=== PATIENT | male | born 1945 | race Caucasian/White ===

== ENCOUNTER 2016-06-10 10:57 | Day surgery (SDC) | payer MEDICARE, OTHER ==
[~2016-06-10] VITALS: Ht 188 cm; Wt 65.8 kg
[~2016-06-10 10:57] MED LIST: AMLO5TAB2 PO; ASCO500C6 PO; ASPI-973 PO; GABA600T2 PO; HYDR25TA4 PO; HYDR2TAB27 PO; IBUP200C PO; LATA2.5D5 OP; LISI-567 PO; METO25TA6 PO; MULT-1018 PO; MULT-666 PO; NITR0.3T6 SL; OXYC5TAB72 PO; SIMV40TA5 PO; TIMO1DRO3 OP
== END 2016-06-10 23:59 | disposition home or self-care (01) ==
LOC: END 10:57
PROVIDERS: ATTEND Anesthesiology Pain Medicine
DX: M48.06 Spinal stenosis, lumbar region (principal); Z53.09 Procedure and treatment not carried out because of other contraindication

== ENCOUNTER 2016-07-12 07:16 | Day surgery (SDC) | payer MEDICARE, OTHER ==
[~2016-07-12] VITALS: Ht 190.5 cm; Wt 64.3 kg
[2016-07-12] VITALS (10 sets, daily range): BP systolic 114–155; BP diastolic 49–78; PULSE 61–75; RESP 14–17; O2SAT 95–100
[2016-07-12] MEDS: Lactated Ringer's 1,000 ML IV SCH ×2 (05:29→10:28)
[~2016-07-12 07:16] MED LIST changes: +CeFAZolin 2 Gm/50 mL D5W IV Premix IV SCH
[2016-07-12] MEDS ORDERED: Phenylephrine/NS-PF 100 mCg/mL 5 mL Syringe IVPUSH ONE (07:17)
[2016-07-12] MEDS ORDERED: Propofol 10,000 mCg/mL 20 mL Inj ONE (07:17)
[2016-07-12] MEDS ORDERED: EPHEDrine/NS 5 mg/mL 5 mL Syringe ONE (07:17)
[2016-07-12] MEDS ORDERED: fentaNYL-PF 50 mCg/mL 2 mL Inj ONE (07:17)
[2016-07-12] MEDS ORDERED: Succinylcholine Chloride 20 mg/mL 5 mL Inj ONE (07:17)
[2016-07-12] MEDS ORDERED: CeFAZolin Inj 2 gm / 50mL D5W IV ONE (07:21)
--- NOTE | 2016-07-12 10:57 | PCM.HPANE ---
Patient Data Date of Service: Jul 12, 2016 Surgeon Admitting Provider: Attending Provider:Trever Stuart MD Primary Care Physician:Chucky Brice MD Other Provider:Sheila George Anesthesia Reason for Visit Malignant Abdominal Wall Mass MALIGNANT ABDOMINAL WALL MASS Ht/WT & BMI Height (Feet): 6 Height (Inches): 3.00 Weight (Kilograms): 64.3 Body Mass Index 17.00 Allergies Coded Allergies: morphine (Verified Adverse Reaction, Severe, N/V, burning sensation from bottom of feet to top of head., 06/26/15) Past Anesthesia History Anesthesia History: Denies:: Abnormal Airway, Anesthesia Reactions, Difficult Intubation, Fam Anesthesia Reaction, Fam Malignant Hypertherm, Malignant Hyperthermia Diabetes History Hx Diabetes?: No MRSA MRSA: No Medications Blood Thinner: Aspirin Hypertension Medication: Yes Home Meds Incl Beta Georgiana: Yes Date Beta Georgiana Taken: Jul 12, 2016 Time Beta Georgiana Taken: 06:30 Reported Medications Nitroglycerin 0.3 Mg Tab.subl0.3 Mg SL DIRECTED PRN For Chest Pain 06/09/16 Metoprolol Tartrate 25 Mg Gyxsqq81 Mg PO BID 30 Days Ref 0 06/09/16 Hydromorphone (Dilaudid)2 Mg Tablet2 Mg PO Q4H PRN Pain 06/09/16 Aspirin 81 Mg Gplslh95 Mg PO DAILY Ref 0 06/09/16 Ascorbic Acid (Vitamin C)500 Mg Capsule.er500 Mg PO TID 06/09/16 Multivitamin (Once Daily)1 Each Tablet1 Each PO DAILY 06/09/16 Ibuprofen 200 Mg Xrcyhre224 Mg PO DIRECTED PRN For Pain Ref 0 06/09/16 Hydrochlorothiazide 25 Mg Ffwgqa04 Mg PO DAILY Ref 0 09/02/15 oxyCODONE 5 Mg Tablet5-10 Mg PO q6hrs PRN For Pain Ref 0 07/31/15 Lisinopril 20 Mg Ssnynv93 Mg PO DAILY Ref 0 03/25/15 Amlodipine 5 Mg Tablet5 Mg PO DAILY Ref 0 02/18/15 Multivitamin (Multi Vitamin Daily)1 Each Tablet1 Each PO DAILY 30 Days Ref 0 11/20/14 Latanoprost (Xalatan)2.5 Ml Drops2.5 Ml OP 11/19/14 Timolol Maleate/Pf (Timoptic 0.25% Ocudose Drop)1 Each Droperette1 Each OP 11/19/14 Simvastatin 40 Mg Ieszne93 Mg PO HS 30 Days Ref 0 11/19/14 Gabapentin 600 Mg Hitsyo933 Mg PO BID Ref 0 11/19/14 History History of ENT Problems?: Yes HEENT History: Positive for:: Glaucoma Hearing Problem Denies:: Abnormal Airway Difficult Intubation Dysphagia Denture Type: Full- Upper Hx of Heart Problems?: Yes Cardiovascular History: Positive for:: Cardiac Surgery (cabg 2006 2 vessel, melvin carotids) Heart Murmur Hypertension Valvular Heart Disease (echo 2011, mild) Denies:: AICD Atrial Fibrillation Chest Pain Congestive Heart Failure Pacemaker Other Cardiac History: Power port current in place Hx of Respiratory Problem?: Yes Respiratory History: Positive for:: Dyspnea (sob exertion) Denies:: Asthma COPD Cough Hemoptysis Oxygen Administration Pneumonia Tuberculosis Use of C-PAP Machine Hx Neurologic Problems?: No Neurological History: Denies:: CVA Dementia Multiple Sclerosis Parkinson's Disease Seizures Hx of GI Problems?: Yes Gastrointestinal History: Positive for:: Gastroesphageal Reflux Rectal Bleeding Denies:: Cirrhosis Diverticulitis Hiatal Hernia Other GI Pertinent History: colon ca with recurrences- abdominal wall resections, partial gastrectomy, lorin en y , partial hepatectomy, costal margins- diaphragmatic resections. Current local cutaneous recurrence Hx of Problems?: No Male Hx: Denies:: Prostate Problems Scrotal Mass Testicular Surgery Skin History: Denies:: History Skin Disorders? Pressure Ulcers Hx Musculoskeletal Problems?: Yes Musculoskeletal History: Positive for:: Back Injury (lumbar spinal stenosis, JESUS injections) Osteoarthritis Denies:: Joint Replacement Musculoskeletal Trauma Myasthenia Gravis Hx of Psycho/Social Problems?: No Psycho Social History: Denies:: Anxiety Hx Depression Hx Surgeries?: Yes (COLON RESECTION X2, ABD WALL RESECTION, CABG, APPY, PORT-A- CATH ) Hx Any Other Health Problems?: Yes Other History: Positive for:: Cancer (colon cancer- mult recurrences) Denies:: Endocrine Disease Hospitalization Thyroid Disease History Blood Transfusions: Denies:: Blood Transfuse Reaction Blood Transfusions Hx Diabetes: No Hx Alcohol Use: YesHx Substance Use: No Smoking Status: Current Every Day Smoker Have You Smoked inLast 12 mo: Yes (pipe) Stop/Bang P-Blood Pressure: treated: Yes B- Body Mass Index > 35 kg/m2: No A- Age over 50: Yes N- Neck Large Circumference: No G- Gender Male: Yes JULIET Risk Assessment: High Risk, =/>3 Yes JULIET Category 4 OutPt Procedure: Yes Risk Assessment Category Category 1A: Patient has history of documented sleep apnea, and HAS NOT received any narcotic, sedative or anesthesia administration during this stay. Category 1B: Patient has history of documented sleep apnea, and HAS received any narcotic , sedative or anesthesia administration during this stay Category 2: Patient has SUSPECTED Obstructive Sleep Apnea, and HAS received any narcotic , sedative or anesthesia administration during this stay. Category 3: Patient has SUSPECTED Obstructive Sleep Apnea and HAS NOT received narcotic, sedative or anesthesia administration during this stay. Category 4: Outpatient in Procedural Areas with known sleep apnea or who screen positive for High Risk via the STOP/BANG questionnaire. Exam Exam Vital Signs Vital Signs Date Time Temp Pulse Resp B/P Pulse Ox O2 Delivery O2 Flow Rate FiO2 07/12/16 07:51 35.8 72 16 131/57 100 Room Air General Appearance: Alert, Oriented X3, Cooperative HEENT/AIRWAY: MP 2, Neck Movement (OK), Mouth Opening (Wide, full upper dentures) Lungs: Clear to Auscultation Heart: Regular Rate/Rhythm, Normal S1, Normal S2, Murmur Meds/Labs/Diagnostics Admission Meds Current Medications Lactated Ringer's (Lr) 1,000 ml @ 120 mls/hr Q8H20M IV Last administered on t 05:29; Start 07/12/16 at 05:00; Stop 07/12/16 at 13:19 Plan Impression Patient chart reviewed, patient interviewed and anesthestic plan with risks, benefits, and alternatives discussed, and informed consent obtained. NPO Status: 07/11 at 2100 ASA Physical Status: ASA3 Severe Disease Anesthetic Plan: GA Bene/Risks/Altern/Consents: Yes HP Complete Prior to Induction: Yes Luis Fernando Mota MD Jul 12, 2016 09:54
[2016-07-12] MEDS ORDERED: Lactated Ringer's 500 ML IV PRN (11:23)
[2016-07-12] MEDS ORDERED: Lactated Ringer's 1,000 ML IV SCH (11:23)
[2016-07-12] MEDS ORDERED: EPHEDrine Sulfate 50 mg/mL Inj IVPUSH PRN (11:25)
[2016-07-12] MEDS ORDERED: hydrALAZINE 20 mg/mL Inj IVPUSH PRN (11:25)
[2016-07-12] MEDS ORDERED: Atropine 0.4 mg/mL Inj IVPUSH PRN (11:25)
[2016-07-12] MEDS ORDERED: MetoCLOpramide 5 mg/mL 2 mL Inj IVPUSH PRN (11:25)
[2016-07-12] MEDS ORDERED: HYDROmorphone 1 mg/mL Inj IVPUSH PRN (11:25)
[2016-07-12] MEDS ORDERED: Ondansetron 2 mg/mL 2 mL Inj IVPUSH PRN (11:25)
[2016-07-12] MEDS ORDERED: Phenylephrine 10,000 mCg/mL Inj IVPUSH PRN (11:25)
[2016-07-12] MEDS ORDERED: Labetalol 5 mg/mL 4 mL Inj IV PRN (11:25)
[2016-07-12] MEDS ORDERED: Dexamethasone 4 mg/mL Inj IVPUSH PRN (11:25)
--- NOTE | 2016-07-12 12:08 | PCM.ANEP1 ---
Post Anesthesia Phase 1 PACU Phase 1 Assessment Date of Service: Jul 12, 2016 Vital Signs Vital Signs Date Time Temp Pulse Resp B/P Pulse Ox O2 Delivery O2 Flow Rate FiO2 07/12/16 07:51 35.8 72 16 131/57 100 Room Air Anesthetic Administered: GA Level of Alertness: Sleeping, hard to arouse RAMOS's with Equal Strength: Yes Pain: No Nausea or Vomiting: No Oxygen Delivery: Simple Mask Lungs: Normal Air Movement Luis Fernando Mota MD Jul 12, 2016 12:08
[2016-07-12] MEDS: fentaNYL-PF 50 mCg/mL 2 mL Inj IVPUSH PRN ×2 (12:20→12:30)
--- NOTE | 2016-07-12 12:22 | PCM.ANEP2 ---
Post Anesthesia Evaluation ASA/CMS Post Anesthesia Date of Service: Jul 12, 2016 VS in Patient's Normal Range?: Yes Resp Stable; Airway Patent?: Yes CV Function & Hydration Stable: Yes Mental Status Recovered?: Yes Pain control Satisfactory?: Yes N/V Control Satisfactory?: Yes Luis Fernando Mota MD Jul 12, 2016 12:21
[2016-07-12] MEDS ORDERED: Lactated Ringer's 1,000 ML IV ONE (14:30)
--- NOTE | 2016-07-12 16:04 | OP ---
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 PROCEDURE: A 4 cm excision of recurrent abdominal wall mucinous adenocarcinoma of the colon. SURGEON: Trever Stuart MD. DIRECTOR SOFTWARE: Andie Oseguera PA-C. INDICATIONS: A 70-year-old man who has had multiple recurrences of his original tumor, which was mucinous adenocarcinoma of the colon. A year ago at [facility], he had an R1 resection of an upper abdominal mass that included a subtotal gastrectomy, left lateral hepatic segmentectomy, abdominal wall portion of the diaphragm and portion of the costal margin. He has developed an abdominal wall recurrence with a 4 cm mass eroding through the skin. A PET scan shows upper abdominal recurrence. Again, he was known a year ago to have residual disease at the duodenal margin and it was elected at [facility] not to excise it, as it would require a Whipple resection and they did not think he could tolerate that operation. On his most current scan, it is not clear the depth of this abdominal mass but after discussing options with the patient, and having him seen preoperatively by Dr. Blake Heaton, it was elected to proceed with an excision but the patient and his were well aware that I may not be able to do a complete resection. FINDINGS: I was only able to do an R2 resection. There was deep gross tumor in what appeared to me the anterior gastric wall, which I definitely did not want to get into. Dr. Heaton then performed a flap mobilization closure. DESCRIPTION OF PROCEDURE: At the beginning and end of my portion of the operation, the SCOAP checklist was completed. A general endotracheal anesthetic was induced by Dr. Iker Mota from anesthesia. Using Betadine, his anterior chest and abdomen were prepped and draped in usual fashion. The cutaneous incision was designed giving grossly clear margins. The tumor was then excised and giving clear gross margins but in the central portion of the deep margin it did appear that I was approaching the gastric or small intestinal wall and, as I had discussed preoperatively with the patient, I was not going to do a gastrointestinal resection. Therefore, I came across the tumor. I placed sutures for margin orientation and then, Dr. Heaton took over to close the wound. The estimated blood loss of my portion of the operation was less than 10 cc, and there were no apparent complications. For my part of the operation, the final sponge, needle and instrument counts were announced as correct. Critical assistance was provided by Andie Oseguera PA-C.
--- NOTE | 2016-07-13 14:59 | OP ---
[address] [address] OPERATIVE REPORT PATIENT: LEONARDO IQBAL : 1945 MR#: [id number] ADMIT: 07/12/2016 JOB ID: [id number] DATE OF SURGERY: 07/12/2016 PREOPERATIVE DIAGNOSIS(ES): 1. Abdominal wall malignant tumor. 2. Abdominal wall defect. POSTOPERATIVE DIAGNOSIS(ES): 1. Abdominal wall malignant tumor. 2. Abdominal wall defect, defect measuring 4 cm in diameter. PROCEDURES: 1. Layered closure of abdominal defect. 2. Layered closure 20 cm. SURGEON: Hima Heaton MD PUBLIC HEALTH SANITARIAN TECHNICIAN: Andie Oseguera PA-C SPECIMEN: None for the plastic surgery portion of the procedure. DRAINS: A #15 round Burke drain, 1 x1. COMPLICATIONS: None apparent. 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 The patient has had several abdominal surgeries for this. The patient most recently had a procedure in January. Patient developed a cutaneous recurrence or extension after the last procedure. At this point, excision of this lesion by Dr. Stuart and closure are indicated for symptom relief. PROCEDURES AND FINDINGS: The patient was identified in the preoperative area and the surgical site was marked. The patient was then taken back to the operating room and placed supine on the operating table. Appropriate time-outs were taken. Dr. Stuart then presented and proceeded with his portion of the procedure. I returned to the operating room after he was done. When I return to the operating room, it was noted that the patient has the midline 4 cm defect. The defect extended all the way down to the abdominal wall. There is a slight possibility according to Dr. Stuart that there is scar tissue and scarred stomach wall at the base of this wound. I started out by incising his midline abdominal incision from just below the level of the nipple all the way to just above the umbilicus. Incision was deepened down to the abdominal wall. I then elevated the subcutaneous tissue off of the abdominal wall medially and laterally. This was also done at the chest wall. I then proceeded to dissect toward the wound edge. This was done from the abdominal wall fascia toward the wound edges to prevent getting into the abdominal cavity. This was done circumferentially. Once this had been done, I continued to elevate the skin flap outward for approximately 10 cm in each direction. This allowed for adequate mobilization. I then temporarily stapled the skin edge at the defect together. Once this had been done, excess skin superiorly and inferiorly were marked. The central jennifer were then removed. Incision was then made along the excess skin with a #10 blade. The incisions were then deepened down to the underlying subcutaneous tissue. Skin was then removed with electrocautery. This was done superiorly and inferiorly. Once this had been done, a layer of 3-0 Vicryl simple interrupted sutures were then placed to reapproximate the Megan fascia where available, and just before complete closure, a #15 drain was placed into the surgical site exiting at a separate inferior lateral stab incision. The drain was secured with a 3-0 nylon drain stitch. I then continued to reapproximate the underlying subcutaneous tissue with 3-0 Vicryl sutures. Once that has been done, a layer of 3-0 Monocryl deep dermal sutures were then placed, followed by 4-0 Monocryl running subcuticular suture. Skin glue was then applied. The patient tolerated the procedure well. Needle count, sponge count, instrument counts were correct at the end of the procedure. The patient's total length of intermediate closure was 20 cm.
--- NOTE | 2016-07-15 15:22 | PATH ---
SURGICAL PATHOLOGY Attending Physician:Sarita Maloney CASE STATUS: Signed Out PATIENT NAME: LEONARDO IQBAL PID: [id number] : 1945 DATE COLLECTED:07/12/2016 20:25 SPECIMEN: Mass, NOS CLINICAL HISTORY: MALIGNANT ABDOMINAL WALL MASS DEEP MARGIN GROSSLY POSITION 1). RECURRENT MUCINOUS ADENOCARCINOMA COLON ABDOMINAL WALL MASS LONG STITCH-LATERAL, SHORT STITCH-SUPERIOR. FINAL DIAGNOSIS: 1.ABDOMINAL MASS EXCISION: ADENOCARCINOMA, CONSISTENT WITH RECURRENT METASTATIC ADENOCARCINOMA, SEE COMMENT. THE DEEP MARGIN IS FOCALLY POSITIVE FOR TUMOR. ICD10 code C79.2 NOTE: The histology of the tumor in this specimen is similar to that in the previous abdominal wall lesion biopsy ([id number], 11/12/2014) and the stomach mass biopsy ([id number], 11/20/2014). GROSS DESCRIPTION: The specimen is received in formalin, labeled with the patient's name, sublabeled as recurrent mucinous adenocarcinoma abdominal wall mass, long-right lateral, short-superior and consists of an oriented ellipse of skin (1.3 cm AP, 3.5 cm SI, 4.0 cm ML) oriented with 2 black sutures (long-right lateral, short-superior). The skin is munoz-white with a focally pale smooth shiny bosselated ulcerated area (3.5 x 2.7 x 0.8 cm) located 0.2 cm from the posterior, 0.5 cm from the superior, circular 4 cm from the inferior, 0.3 cm from the medial, and 0.5 cm from the lateral resection margins. Ink code: yellow-posterior; black-superior; orange-inferior; green-medial; blue-lateral. Section code: (A) medial resection margin, perpendicularly sectioned, entirely submitted; (B- H) ellipse of skin, serially sectioned and submitted ML, every other slice submitted; (I) lateral resection margin, perpendicularly sectioned, entirely submitted. 07/13/16 JM MICRO DESCRIPTION: Sections are of skin with a malignant neoplasm in the dermis, composed of large angulated glands and glands with irregular contours and central necrosis. The tumor occupies much of the specimen and is present at the deep inked surgical margin. ICD-9 CODES: CPT CODES: 1: 88318 Electronically Signed Out Kathleen Parks MD [facility] [address], [place] [address] Technical component performed at [facility], [address], [place], [address]
== END 2016-07-12 23:59 | disposition home or self-care (01) ==
LOC: SAS 07:16
PROVIDERS: ATTEND Surgery
DX: C79.2 Secondary malignant neoplasm of skin (principal); C18.9 Malignant neoplasm of colon, unspecified; R06.09 Other forms of dyspnea; F17.210 Nicotine dependence, cigarettes, uncomplicated; I10 Essential (primary) hypertension; K21.9 Gastro-esophageal reflux disease without esophagitis; Z79.82 Long term (current) use of aspirin; Z79.899 Other long term (current) drug therapy
CPT/HCPCS: 13101; 13102; 22900; J0330; J0690; J2370; J2405; J3010; J7120

== ENCOUNTER 2016-10-31 10:45 | Day surgery (SDC) | payer MEDICARE, OTHER ==
[~2016-10-31] VITALS: Ht 190.5 cm; Wt 67.1 kg
[~2016-10-31 10:45] MED LIST changes: -CeFAZolin 2 Gm/50 mL D5W IV Premix IV SCH; -HYDR2TAB27 PO; +LATA2.5D5 BOTH_EYES; -LATA2.5D5 OP; -MULT-666 PO; +TIMO1DRO3 BOTH_EYES; -TIMO1DRO3 OP
[2016-10-31] MEDS ORDERED: 0.9% Sodium Chloride 1,000 ML IV SCH (11:25)
[2016-10-31 16:56] VITALS: BP 149/72; PULSE 57; RESP 18; O2SAT 98
[2016-10-31] MEDS ORDERED: LISI10TA PO (17:26)
[2016-10-31] MEDS ORDERED: HepLOK Flush 100 unit/mL 5 mL Inj ONE (18:10)
--- NOTE | 2016-10-31 18:29 | NUR ---
IV Hydration: Tolerated ordered IV fluid without incident. Portacath flushed with 20 mLs of NS and 5 mLs of Heparin, and de accessed. Discharged home ambulatory in stable condition.
== END 2016-10-31 23:59 | disposition home or self-care (01) ==
LOC: MOCO 10:45
PROVIDERS: ATTEND Internal Medicine Hematology & Oncology
DX: E86.0 Dehydration (principal); C79.89 Secondary malignant neoplasm of other specified sites; C79.2 Secondary malignant neoplasm of skin; I12.9 Hypertensive chronic kidney disease with stage 1 through stage 4 chronic kidney disease, or unspecified chronic kidney disease; N18.9 Chronic kidney disease, unspecified; D64.9 Anemia, unspecified
CPT/HCPCS: 96360; J1642; J7030

== ENCOUNTER 2016-12-22 12:20 | Emergency (ER) | payer MEDICARE, OTHER ==
[~2016-12-22] VITALS: Ht 190.5 cm; Wt 65.7 kg
[~2016-12-22 12:20] MED LIST changes: -AMLO5TAB2 PO; -ASCO500C6 PO; +CAPE500T PO; -IBUP200C PO; -LISI-567 PO; +LISI10TA PO; -METO25TA6 PO; -NITR0.3T6 SL; -OXYC5TAB72 PO
[2016-12-22 12:26] VITALS: BP 103/57; PULSE 76; RESP 16; O2SAT 100
[2016-12-22] MEDS ORDERED: 0.9% Sodium Chloride 1,000 ML IV ONE (13:32)
[2016-12-22] MEDS ORDERED: Ondansetron 2 mg/mL 2 mL Inj IVPUSH PRN (13:35)
[2016-12-22] MEDS ORDERED: HYDROmorphone 0.5 mg/0.5 mL iSecure Syringe IVPUSH PRN (13:35)
[2016-12-22] MEDS ORDERED: Ketorolac 15 mg/mL Inj IVPUSH ONE (13:35)
[2016-12-22 13:47] VITALS: BP 115/38; PULSE 65; RESP 15; O2SAT 97
[2016-12-22 14:00] LABS: BASOPHILS % (AUTO) 0.3 % (0-3); EOSINOPHILS % (AUTO) 4.6 % (0-5); MONOCYTES % (AUTO) 5.8 % (4-12); Mean Corpuscular Volume 95.6 fL (81-100); NEUTROPHILS % (AUTO) 78.3 % (40-74); Platelet Count 227 bil/L (150-400)
[2016-12-22 14:04] LABS: COLOR,URINE YELLOW (YELLOW)
[2016-12-22 14:05] LABS: APPEARANCE,URINE CLOUDY (CLEAR,HAZY); OCCULT BLOOD,URINE LARGE (NEGATIVE); PH,URINE 5.5 (5.0-8.0)
--- NOTE | 2016-12-22 14:05 | ED.REPORT ---
HPI-Abd Pain M 40 and Over Date of Service Dec 22, 2016 ED Provider: Doc,Ed MD The pt is a 71 y/o male w/ a hx of metastastic colon cancer, gastric cancer, HTN , chronic anemia, chronic renal insufficiency hyperlipidemia, GERD, an appendectomy, an gastrectomy, and 2 bowel resections presenting to the ED from urgent care complaining of dysuria onset 4 days ago. He is also experiencing polyuria and diarrhea. Denies a fever. The pt has colon cancer, is on palliative chemotherapy, and goes through cycles of 2 weeks on and 2 weeks off. Nursing Notes Stated Complaint: DIARRHEA Chief Complaint: Dysuria Nursing Notes Reviewed: Yes Allergies: Coded Allergies: morphine (Verified Adverse Reaction, Severe, N/V, burning sensation from bottom of feet to top of head., 10/31/16) Scheduled Aspirin (Aspirin) 81 Mg Tablet 81 MG PO DAILY Capecitabine (Xeloda) 500 Mg Tablet 1,500 MG PO bid dys1-14 q21dys STARTED 12/06 Gabapentin (Gabapentin) 600 Mg Tablet 600 MG PO TID Hydrochlorothiazide (Hydrochlorothiazide) 25 Mg Tablet 25 MG PO DAILY Latanoprost (Xalatan) 2.5 Ml Drops 1 DROP BOTH_EYES DAILY Lisinopril (Lisinopril) 10 Mg Tablet 10 MG PO DAILY Multivitamin (Multi Vitamin Daily) 1 Each Tablet 1 TABLET PO DAILY Simvastatin (Simvastatin) 40 Mg Tablet 40 MG PO HS Timolol Maleate/Pf (Timoptic 0.25% Ocudose Drop) 1 Each Droperette 1 DROP BOTH_ EYES QAM General Time Seen by MD: 14:05 Chief Complaint Dysuria Hx Obtained From: Patient Arrived By: Walk-in Sudden in Onset?: Yes Symptom Duration: Since onset Recent Healthcare: No recent hospitalization, Recent doctor visit Similar Sx Previous: Yes Past Medical History Past Medical History Widely metastatic colon cancer gastric cancer Neuralgia Hearing loss Pt is on oral chemo and goes through cycles of 2 weeks on and 2 weeks off for his colon cancer Palliative chemotherapy Chronic renal insufficiency Chronic anemia Reports: GERD, Hyperlipidemia, Hypertension Reports: Diverticulitis Past Surgical History Gastrectomy Cardiac cath Bowel resection x2 Reports: Appendectomy, CABG Reports: Portocath Smoking History Current Every Day Smoker Social History Alcohol Use: "Social" Drug Use: Denies drug use Ambulatory Status Independent Review of Systems Polyuria; Constitutional: Denies: Fever GI: Reports: Diarrhea Male: Reports Dysuria Complete sys rev & neg: except as marked. Physical Exam No post-void residue Initial Vital Signs Vital Signs (First) Date Time Temp Pulse Resp B/P Pulse Ox O2 Delivery O2 Flow Rate FiO2 12/22/16 12:26 36.5 76 16 103/57 100 12/22/16 13:47 Room Air Initial VS: Reviewed Head / Eyes: Atraumatic, Normocephalic, PERRL ENT: Mucous membranes moist, Conjunctiva normal, No scleral icterus Neck: Supple, Non-tender, Full range of motion Skin: Warm, Dry, No cyanosis Neurologic: Alert, Oriented, Nonfocal Psychiatric: Mood/affect normal, Behavior normal, Normal thought content General/Constitutional: Awake, Alert Respiratory / Chest: Atraumatic, Breath sounds NL, Breath sounds = bilat Cardiovascular: Heart rate NL, Regular rhythm, Heart sounds NL Abdomen: Atraumatic, Soft Tenderness/Guarding/Rebound: Positive: Tender suprapubic (mild ) Back: Atraumatic, Full range of motion Interpretation & Diagnostics Lab Results Interpretation Result Diagram: 12/22/16 1353 12/22/16 1353 Test 12/22/16 13:08 12/22/16 13:53 Urine Color Yellow (YELLOW) Urine Appearance Cloudy (CLEAR,HAZY) Urine pH 5.5 (5.0-8.0) Urine Specific [place] 1.025 (1.003-1.035) Urine Protein 300mg/dL (NEG,TRACE) Urine Glucose (UA) Negativemg/dL (NEGATIVE) Urine Ketones Tracemg/dL (NEGATIVE) Urine Occult Blood Large (NEGATIVE) Urine Nitrite Negative (NEGATIVE) Urine Bilirubin Negative (NEGATIVE) Urine Urobilinogen Normalmg/dL (NORMAL) Urine Leukocyte Esterase Small (NEGATIVE) Urine RBC 11-50/hpf (0-2) Urine WBC 6-10/hpf (0-5) Urine Epithelial Cells Occasional/hpf (NONE-MOD) Urine Crystals None seen (NONE SEEN) Urine Bacteria None/hpf (NONE-FEW) Urine Hyaline Casts None/lpf (NONE) Urine Granular Casts None seen (NONE SEEN) Urine Waxy Casts None seen (NONE SEEN) Urine Red Blood Cell Casts None seen (NONE SEEN) Urine White Blood Cell Casts None seen (NONE SEEN) Urine Mucus None seen (None Seen) Urine Trichomonas None seen (NONE SEEN) Urine Yeast None (NONE SEEN) Urinalysis Comment None Urine Culture Reflexed Indicated Hold Urine Received (Received) White Blood Count 3.3th/mm3 (3.8-10.1) Red Blood Count 2.94mil/mm3 (4.40-5.80) Hemoglobin 9.1g/dL (13.8-17.2) Hematocrit 28.1% (41.0-50.0) Mean Corpuscular Volume 95.6fL (81-100) Mean Corpuscular Hemoglobin 31.0pg (27.0-35.0) Mean Corpuscular Hemoglobin Concent 32.4% (32.0-37.0) Red Cell Distribution Width 13.8% (12.3-15.4) Platelet Count 227bil/L (150-400) Neutrophils (%) (Auto) 78.3% (40-74) Lymphocytes (%) (Auto) 10.7% (14-46) Monocytes (%) (Auto) 5.8% (4-12) Eosinophils (%) (Auto) 4.6% (0-5) Basophils (%) (Auto) 0.3% (0-3) Sodium Level 140mEq/L (134-144) Potassium Level 4.8mEq/L (3.5-5.2) Chloride Level 111mEq/L (97-108) Carbon Dioxide Level 18mmol/L (18-29) Blood Urea Nitrogen 37mg/dL (8-27) Creatinine 2.28mg/dL (0.76-1.27) Estimat Glomerular Filtration Rate 30mL/min (>59) Glucose Level 120mg/dL (60-99) Calcium Level 8.1mg/dL (8.5-10.1) Magnesium Level 1.9mg/dL (1.6-2.6) Total Bilirubin 0.2mg/dL (0.0-1.2) Aspartate Amino Transf (AST/SGOT) 8U/L (0-50) Alanine Aminotransferase (ALT/SGPT) 5U/L (0-44) Alkaline Phosphatase 61U/L (25-160) Total Protein 5.4g/dL (6.4-8.4) Albumin 3.1g/dL (3.4-5.0) Lipase 14U/L (13-60) Hold [place] Top Tube Received (Received) Re-Eval/Medical Decision Source of Hx: Old records Counseled Regarding: Diagnosis, Lab results, Need for follow-up, When/why to return to ED Discharge & Departure Primary Impression: Urinary tract infection Urinary tract infection type: site unspecified Hematuria presence: without hematuria Qualified Code: N39.0 - Urinary tract infection, site not specified Additional Impression: Colon cancer metastasized to multiple sites Ruled Out: Sepsis Disposition: Home Vital Signs - All Vital Signs Date Time Temp Pulse Resp B/P Pulse Ox O2 Delivery O2 Flow Rate FiO2 12/22/16 13:47 65 15 115/38 97 Room Air 12/22/16 12:26 36.5 76 16 103/57 100 )( All Prior VS Reviewed: Yes Condition: Stable Additional Instructions: Thank for you entrusting us with your care today. You were diagnosed with an urinary tract infection. Please take the Levaquin for the next 7 days and as prescribed to treat the infection and I suspect the pain will be gone soon after you begin the antibiotics. Please avoid taking Ibuprofen, Motrin, and Aleve as they can cause potential harm to your kidneys. I recommend Tylenol PM for your pain and Benadryl to help you sleep because they are less harmful to your kidneys. If you develop any dizziness, confusion, shortness of breath, high fevers, increasing pain while urinating, or any new or worsening symptoms please return to the emergency department. I hope you feel better soon. Referrals: Chucky Brice MD (PCP) Scribe Attestation Portions of this note were transcribed by Ramy Olsen. I, Dr. Giraldo personally performed the history, physical exam and medical decision-making; I reviewed and confirmed the accuracy of the information in the transcribed note. copies to: Chucky Brice MD, Shawna L MD Dec 22, 2016 14:05 Ramy Olsen Dec 22, 2016 14:15
[2016-12-22 14:06] LABS: UROBILINOGEN,URINE NORMAL (NORMAL)
[2016-12-22 14:21] LABS: Magnesium 1.9 mg/dL (1.6-2.6)
[2016-12-22] MEDS ORDERED: HepLOK Flush 100 unit/mL 5 mL Inj ONE (15:05)
[2016-12-22] MEDS ORDERED: levoFLOXacin 750 mg Tablet PO ONE (15:10)
[2016-12-22 15:11] VITALS: BP 110/48; PULSE 66; RESP 15; O2SAT 100
[2016-12-22] MEDS ORDERED: LEVO500T16 PO (15:16)
[2016-12-22 15:18] VITALS: BP 110/48; PULSE 66; RESP 15; O2SAT 100
== END 2016-12-22 15:28 | disposition home or self-care (01) ==
LOC: SED 12:20
DX: N39.0 Urinary tract infection, site not specified (principal); C79.9 Secondary malignant neoplasm of unspecified site; C18.9 Malignant neoplasm of colon, unspecified; I12.9 Hypertensive chronic kidney disease with stage 1 through stage 4 chronic kidney disease, or unspecified chronic kidney disease; N18.9 Chronic kidney disease, unspecified; K21.9 Gastro-esophageal reflux disease without esophagitis; E78.5 Hyperlipidemia, unspecified; F17.200 Nicotine dependence, unspecified, uncomplicated; Z92.21 Personal history of antineoplastic chemotherapy; Z90.49 Acquired absence of other specified parts of digestive tract; Z95.1 Presence of aortocoronary bypass graft; Z98.890 Other specified postprocedural states; Z79.82 Long term (current) use of aspirin; Z88.5 Allergy status to narcotic agent
CPT/HCPCS: 36415; 80053; 81000; 83690; 83735; 85025; 87086; 96361; 96374; 96375; 99285; J1170; J1642; J1885; J2405; J7030